=== PATIENT | female | born 1970 | race Caucasian/White ===

== ENCOUNTER 2018-12-28 11:17 | Day surgery (SDC) | payer BC ==
[~2018-12-28] VITALS: Ht 160 cm; Wt 94.5 kg
[2018-12-28] MEDS ORDERED: GABA100 (11:50)
[2018-12-28] MEDS ORDERED: CYCL10 (11:50)
[2018-12-28] MEDS ORDERED: VENTAVIS (11:51)
[2018-12-28] MEDS ORDERED: Norco 10-325 T1 EACH (11:51)
[2018-12-28] MEDS ORDERED: Adipex-P37.5 M1 (11:51)
== END 2018-12-28 12:45 | disposition home or self-care (01) ==
LOC: ORSCSDS 11:17
PROVIDERS: Internal Medicine Gastroenterology
PROC: 0DBL8ZX Excision of Transverse Colon, Via Natural or Artificial Opening Endoscopic, Diagnostic (ICD-10-PCS; principal; 2018-12-28 12:45)
DX: Z12.11 Encounter for screening for malignant neoplasm of colon (principal); D12.3 Benign neoplasm of transverse colon; K57.30 Diverticulosis of large intestine without perforation or abscess without bleeding; K64.8 Other hemorrhoids; J45.909 Unspecified asthma, uncomplicated; E66.9 Obesity, unspecified; Z68.38 Body mass index [BMI] 38.0-38.9, adult; Z79.899 Other long term (current) drug therapy
CPT/HCPCS: 88305; J2704; J7120

== ENCOUNTER → 2019-10-30 | Outpatient (CLI) | payer BC ==
[~2019-10-30] MED LIST: Adipex-P37.5 M1; CYCL10; GABA100; Norco 10-325 T1 EACH; VENTAVIS
[2019-11-01 13:22] LABS: AMENDED REPORT: PN; CLINICAL HISTORY: PN; SOURCE: ENDOCERVIX
== END | disposition home or self-care (01) ==
LOC: LAB 18:09 → LAB SHORT 18:09
PROVIDERS: Hospitalist
DX: Z12.4 Encounter for screening for malignant neoplasm of cervix (principal)
CPT/HCPCS: G0145

== ENCOUNTER 2020-10-16 08:00 | Day surgery (SDC) | payer BC ==
[~2020-10-16] VITALS: Ht 160 cm; Wt 107.6 kg
[~2020-10-16 08:00] MED LIST changes: +ALBU90OI INH; +CYCL10 PO; +GABA300 PO; +IBUP600 PO
[2020-10-16] MEDS ORDERED: PREG75 PO (08:53)
[2020-10-16] MEDS ORDERED: CYCL10 PO (08:53)
[2020-10-16] MEDS ORDERED: HYDACE10B PO (08:54)
--- NOTE | 2020-10-16 09:54 | NUR ---
10/16/20 0954 Caleb Newberry 0.15ML OF EPI 1MG/ML ADDED TO 30ML MARCAINE 0.5% TO FORM A MIXTURE OF BUPIVICAINE 0.5% WITH EPI 1:200,000.
== END 2020-10-16 10:57 | disposition home or self-care (01) ==
LOC: ORSCSDS 08:00
PROVIDERS: Orthopaedic Surgery
PROC: 01N50ZZ Release Median Nerve, Open Approach (ICD-10-PCS; principal; 2020-10-16 09:30)
PROC: 0LN70ZZ Release Right Hand Tendon, Open Approach (ICD-10-PCS; principal; 2020-10-16 09:30)
DX: G56.01 Carpal tunnel syndrome, right upper limb (principal); M65.341 Trigger finger, right ring finger; J45.909 Unspecified asthma, uncomplicated; Z79.899 Other long term (current) drug therapy; E66.01 Morbid (severe) obesity due to excess calories; Z68.41 Body mass index [BMI] 40.0-44.9, adult
CPT/HCPCS: J0171; J0690; J1100; J1885; J2250; J2405; J2704; J3010; J7120